=== PATIENT | female | born 1995 | race Caucasian/White ===

== ENCOUNTER 2023-12-17 14:42 | Emergency (ER) | payer SELFPAY ==
[2023-12-17] VITALS (10 sets, daily range): BP systolic 92–111; BP diastolic 43–63
[~2023-12-17] VITALS: Ht 162.6 cm; Wt 86.1 kg
[2023-12-17 15:46] LABS: BASO% 0.5 % (0-3); EOS% 2.4 % (0-8); HEMATOCRIT 36.1 % (37.0-47.0); HEMOGLOBIN 11.5 g/dl (12.0-16.0); IMMATURE GRANULOCYTES 0.3 % (0.0-5.0); LYMPH% 27.8 % (15-41); MEAN CORPUSCULAR HGB 28.7 pG CALC (26.0-32.0); MEAN CORPUSCULAR HGB CONC 31.9 g/dL CAL (32.0-36.0); MONO% 6.4 % (2-13); NEUT# 5.51 thou/uL (2.00-7.15); NEUT% 62.6 % (42-76); RED BLOOD COUNT 4.01 mill/uL (4.20-5.60); RED CELL DISTRI WIDTH 12.9 % (11.5-15.5)
[2023-12-17 16:00] LABS: ALBUMIN 4.1 g/dL (3.2-5.0); ALKALINE PHOSPHATASE 58 u/l (38-126); ANION GAP 9 (6-22 (CALC)); BILIRUBIN, TOTAL 0.3 mg/dL (0.02-1.3); BUN 12 mg/dL (7-17); BUN/CREATININE RATIO 22 (12-20 (CALC)); CARBON DIOXIDE 25 mmol/l (22-30); CHLORIDE 110 mmol/l (95-108); CREATININE 0.5 mg/dL (0.5-1.0); GFR FOR AFR.AMER. > 60 ML/MIN (>=60 (CALC)); GFR OTHER RACES > 60 ML/MIN (>=60 (CALC)); POTASSIUM 4.3 mmol/l (3.5-5.1); SGOT/AST 31 u/l (14-36); SODIUM 140 mmol/l (137-146); TOTAL PROTEIN 6.7 g/dL (6.3-8.2)
[2023-12-17] MEDS ORDERED: VIBRAMYCIN100 M2 PO (16:53)
[2023-12-17] MEDS ORDERED: METFORMIN HCL500 M1 PO (16:53)
[2023-12-17] MEDS ORDERED: DIFLUCAN150 MG PO (16:55)
== END 2023-12-17 17:09 | disposition home or self-care (01) | DRG 607 ==
LOC: ED 14:42
PROVIDERS: Nurse Practitioner
DX: L73.2 Hidradenitis suppurativa (principal)